=== PATIENT | female | born 1995 | race Caucasian/White ===

== ENCOUNTER 2020-09-21 08:51 | Emergency (ER) | payer BC ==
[~2020-09-21] VITALS: Ht 167.6 cm; Wt 54.8 kg
--- NOTE | 2020-09-21 09:05 | NUR ---
13 WKS MODERATE VAGINAL BLEEDING SINCE LAST NIGHT, Maybe 1 pad saturated No cramping Appears well, vss
--- NOTE | 2020-09-21 09:32 | NUR ---
lab at bedside
[2020-09-21 09:44] LABS: BASOPHILS % (AUTO) 0 % (0-1); EOSINOPHILS % (AUTO) 0 % (1-7); LYMPHOCYTES % (AUTO) 9 % (22-44); MEAN CORPUSCULAR HEMOGLOBIN 30.6 pg (27.0-34.8); MEAN CORPUSCULAR HGB CONC 34.1 g/dL (32.4-35.8); MEAN PLATELET VOLUME 7.6 fL (7.4-10.4); MONOCYTES % (AUTO) 6 % (2-9); NEUTROPHILS % (AUTO) 84 % (42-75); PLATELET COUNT 315 x10^3/uL (130-400); RED BLOOD COUNT 4.43 x10^6/uL (3.82-5.3)
[2020-09-21 09:58] LABS: ALANINE AMINOTRANSFERASE 15 U/L (12-78); ALBUMIN 3.3 g/dL (3.4-5.0); ANION GAP 5 mmol/L (5-15); CALCIUM 9.5 mg/dL (8.5-10.1); CHLORIDE 109 mmol/L (98-107); CREATININE 0.55 mg/dL (0.55-1.02)
[2020-09-21 10:13] LABS: MD SCAN
[2020-09-21 10:15] LABS: ALKALINE PHOSPHATASE 54 U/L (45-117); BILIRUBIN,TOTAL 0.3 mg/dL (0.2-1.0); TOTAL PROTEIN 7.2 g/dL (6.4-8.2)
--- NOTE | 2020-09-21 10:57 | NUR ---
All testing reviewed-provider made aware
[2020-09-21 11:26] VITALS: BP 109/52
== END 2020-09-21 11:30 | disposition home or self-care (01) ==
LOC: ED 10:28
DX: O20.0 Threatened abortion (principal)
CPT/HCPCS: 36415; 76801; 80053; 84702; 85025; 86901; 99284

== ENCOUNTER 2020-10-07 05:03 | Emergency (ER) | payer BC ==
[~2020-10-07] VITALS: Ht 167.6 cm; Wt 54.6 kg
--- NOTE | 2020-10-07 06:16 | NUR ---
patient needing straight cath for UA. patient reports MD spoke with her about this as well and she was in agreement with me to perform. RN educated patient on [id number] procedure and what to expect with feeling. RN attempted first time and patient became anxious and tense and catheter stopped and patient closed legs together right away. sterilility had been broken so cath was pulled and new cath kit obtained. RN requested another RN to come to bedside to help maintain sterility but to also help with keeping patient calm and focusing on breathing. patient was able to do so but unsuccessful straight cath. second RN at bedside attempted with new Uptake female cath kit and deep breathing exercises encouraged and performed and successful straight cath. US at bedside now out side room in chair. VS remained stable. call dyer in reach
[2020-10-07 06:49] LABS: MICROSCOPIC INDICATED
--- NOTE | 2020-10-07 06:54 | NUR ---
report given to Tia Denise RN
[2020-10-07 08:05] VITALS: BP 120/90
--- NOTE | 2020-10-07 08:05 | NUR ---
dr toussaint spoke with dr jon
--- NOTE | 2020-10-07 08:06 | NUR ---
ASSISTED ERMD WITH BEDSIDE PELVIC.
--- NOTE | 2020-10-07 08:09 | NUR ---
L&D NOTIFIED PT TO GO UP TO BE ASSESSED, NO REPORT NEEDED, THEY ARE AWARE THE PT IS COMING
[2020-10-07] MEDS ORDERED: PREN1TAB10 PO (10:10)
== END 2020-10-07 08:37 | disposition home or self-care (01) ==
LOC: ED 05:25
DX: O46.92 Antepartum hemorrhage, unspecified, second trimester (principal); R10.2 Pelvic and perineal pain; Z3A.15 15 weeks gestation of pregnancy
CPT/HCPCS: 76815; 81001; 99284

== ENCOUNTER 2020-10-07 08:32 | Outpatient (CLI) | payer BC ==
[2020-10-07] MEDS ORDERED: PREN1TAB10 PO (10:10)
== END 2020-10-07 10:30 | disposition home or self-care (01) ==
LOC: LDOP 08:32
PROVIDERS: ATTEND Student in an Organized Health Care Education/Training Program
DX: O44.23 Partial placenta previa NOS or without hemorrhage, third trimester (principal); Z3A.30 30 weeks gestation of pregnancy
CPT/HCPCS: 76817; 89060; 99211; G0463; Q0114

== ENCOUNTER 2020-10-14 07:36 | Emergency (ER) | payer BC ==
[~2020-10-14] VITALS: Ht 167.6 cm; Wt 55.0 kg
[~2020-10-14 07:36] MED LIST: PREN1TAB10 PO
[2020-10-14] MEDS ORDERED: ONDANSETRON 2MG/ML, 2ML ONE (07:45)
--- NOTE | 2020-10-14 07:50 | NUR ---
ZOFRAN 4 MG IV PER VERBAL ORDER ANANDA UNGER.
[2020-10-14] MEDS ORDERED: ONDANSETRON 2MG/ML, 2ML IVPush ONE (08:00)
[2020-10-14 08:11] LABS: BASOPHILS % (AUTO) 0 % (0-1); EOSINOPHILS % (AUTO) 0 % (1-7); LYMPHOCYTES % (AUTO) 3 % (22-44); MEAN CORPUSCULAR HEMOGLOBIN 30.3 pg (27.0-34.8); MEAN CORPUSCULAR HGB CONC 33.4 g/dL (32.4-35.8); MEAN PLATELET VOLUME 7.3 fL (7.4-10.4); MONOCYTES % (AUTO) 4 % (2-9); NEUTROPHILS % (AUTO) 93 % (42-75); PLATELET COUNT 312 x10^3/uL (130-400); RED CELL DISTRIBUTION WIDTH 13.2 % (9.6-15.2)
[2020-10-14 08:22] LABS: ALANINE AMINOTRANSFERASE 22 U/L (12-78); ALBUMIN 2.8 g/dL (3.4-5.0); ANION GAP 8 mmol/L (5-15); CALCIUM 8.5 mg/dL (8.5-10.1); CHLORIDE 110 mmol/L (98-107); CREATININE 0.57 mg/dL (0.55-1.02)
[2020-10-14 08:24] LABS: ALKALINE PHOSPHATASE 60 U/L (45-117); BILIRUBIN,TOTAL 0.2 mg/dL (0.2-1.0); TOTAL PROTEIN 6.3 g/dL (6.4-8.2)
[2020-10-14 08:32] LABS: MD SCAN
--- NOTE | 2020-10-14 08:46 | NUR ---
given pads/panties. products of conception walked to lab w patho slip and authorization for communal cremation. anacosamirh in room for assessment. pt denies nausea/cramping at this moment. at bedside. call dyer in reach. as
[2020-10-14] MEDS ORDERED: MISOPROSTOL 200 MCG TABLET PR ONE (09:30)
[2020-10-14] MEDS ORDERED: IBUPROFEN 800 MG TABLET ONE (09:51)
[2020-10-14] MEDS ORDERED: IBUPROFEN 800 MG TABLET PO ONE (10:00)
--- NOTE | 2020-10-14 10:00 | NUR ---
dr jon at bedside for assessment. pt given cytotec, monitor for 1 more hour then dc home, specimen walked to lab again. as
[2020-10-14 11:13] VITALS: BP 115/62
== END 2020-10-14 11:15 | disposition home or self-care (01) ==
LOC: ED 10:22
DX: O03.9 Complete or unspecified spontaneous abortion without complication (principal)
CPT/HCPCS: 36415; 76815; 80053; 85025; 86901; 88305; 96374; 99284; J2405